=== PATIENT | female | born 1995 | race Two or more races ===

== ENCOUNTER 2025-03-19 16:20 | Emergency (ER) | payer BC, SELFPAY ==
[2025-03-19 16:28] VITALS: BP 117/75; PULSE 77; RESP 16; TEMP 36.7; O2SAT 97; BMI 30.5
--- NOTE | 2025-03-19 16:33 | XR_ITS ---
Examination: Complete OB ultrasound, less than 14 weeks, transabdominal Date and time of exam: 03/19/2025, 4:46 p.m. COMPARISON: None INDICATION: Vaginal bleeding for 3 days, worse today Technique: Obstetrical ultrasound images less than 14 weeks performed via transabdominal imaging Findings: LMP reported as 02/12/2025. hCG pending. Retroverted uterus measures 7.4 x 3.2 x 4.5 cm in size. No evidence for IUP at this time. The endometrium is measured at 2.6 mm in thickness. No uterine fibroids. Normal appearing ovaries with intact blood flow bilaterally. The right ovary is measured at 3.8 x 1.7 x 2.2 cm and the left ovary is measured at 3.1 x 1.6 x 1.9 cm. No adnexal mass or free pelvic fluid. IMPRESSION: No evidence for IUP at this time. No adnexal mass or free pelvic fluid.
[2025-03-19 17:06] LABS: Basophils # (Auto) 0.1 Thou/mm3 (0.0-0.2); Basophils % (Auto) 1 % (0-2.5); Eosinophils # (Auto) 0.2 Thou/mm3 (0.0-0.5); Eosinophils % (Auto) 2 % (0-10); Hematocrit 37.5 % (36.0-46.0); Hemoglobin 12.9 g/dL (12.0-16.0); Immature Granulocytes Auto 0.02 Thou/mm3 (0.00-0.00); Lymphocytes # (Auto) 3.5 Thou/mm3 (1.0-4.8); Lymphocytes % (Auto) 34 % (10-50); Mean Corpuscular HGB Conc 34.4 g/dl (31.0-37.0); Mean Corpuscular Hemoglobin 29.0 pg (25.0-35.0); Mean Corpuscular Volume 84 fL (80-100); Monocytes # (Auto) 0.8 Thou/mm3 (0.0-0.8); Monocytes % (Auto) 8 % (0-12); Neutrophils # (Auto) 5.7 Thou/mm3 (1.8-7.7); Neutrophils % (Auto) 55 % (37-80); Nucleated Red Blood Cell # 0.00 Thou/mm3 (0.00-0.00); Nucleated Red Blood Cell % 0 /100 WBC (0); Platelet Count 412 Thou/mm3 (140-440); RDW Standard Deviation 38.5 fL (36.4-46.3); Red Blood Count 4.45 Miln/mm3 (4.00-5.20); White Blood Count 10.4 Thou/mm3 (3.6-11.0)
[2025-03-19 17:28] LABS: Alanine Aminotransferase 31 U/L (10-49); Albumin, Serum 4.8 gm/dL (3.5-5.0); Albumin/Globulin Ratio 2.0 (1.2-2.2); Alkaline Phosphatase 69 U/L (46-116); Anion Gap 9 (7-16); Aspartate Amino Transferase 32 U/L (0-34); BUN/Creatinine Ratio 17 Ratio (12-20); Beta HCG,Quantitative 2 mIU/mL (<5.0); Bilirubin,Total 0.2 mg/dL (0.3-1.2); Blood Urea Nitrogen 10 mg/dL (9-23); Calcium 9.5 mg/dL (8.3-10.6); Calcium (Corrected) 9.5 mg/dL (8.5-10.1); Carbon Dioxide 27.2 mMol/L (20.0-31.0); Chloride 107 mMol/L (98-107); Creatinine (Component) 0.6 mg/dL (0.6-1.3); Estimated Creatinine Clearance 140.9 mL/min (>60); Globulin 2.4 gm/dL (2.3-3.5); Glucose 105 mg/dL (74-106); Osmolality,Calculated 283 (275-295); Potassium 4.4 mMol/L (3.4-5.1); Sodium 143 mMol/L (136-145); Total Protein 7.2 gm/dL (5.7-8.2); eGFR > 60 See Note
[2025-03-19 17:54] LABS: Collection Type, Urine Voided
[2025-03-19 18:06] LABS: Bilirubin,Urine Negative (Negative); Blood,Urine 3+ (Negative); Clarity,Urine Clear (Clear/Hazy); Color,Urine Yellow (Lt Yel-Yel); Glucose, Urine Negative (Negative); Ketones,Urine Negative (Negative); Leukocyte Esterase,Urine Positive (Negative); Nitrite,Urine Negative (Negative); PH,Urine 6.0 (5.0-7.0); Protein,Urine Trace (Neg - Trace); RBC,Urine 849 /hpf (0-3); Specific Gravity,Urine 1.034 (1.001-1.035); Squamous Epithelial Cell,Urine 3 /hpf (0-5); Urobilinogen,Urine Negative mg/dL (0.0-1.0); WBC,Urine 4 /hpf (0-5)
--- NOTE | 2025-03-19 18:34 | EDNOTE_ITS ---
ED OB Contraction Preg RMI/HPI General Chief complaint: Vaginal Bleeding Stated complaint: VAGINAL BLEEDING W/ CRAMPING; PREG 4WKS? Time Seen by Provider: 03/19/25 16:25 Arrival date/time: 03/19/25 16:20 This is a case of 29-year-old female with no medical history came in in the emergency room due to vaginal bleeding with no blood clots for 2 days patient states that she is 4 weeks she did test 3 times and it was positive she went to primary care physician the beta-hCG is positive and noted to be 25 no ultrasound done she is supposed to see OB loss prevention associate persistent of the symptoms thus patient decided to start consult here in the emergency room Limitations: no limitations Related Data Allergies Allergy/AdvReac Type Severity Reaction Status Date / Time No Known Allergies Allergy Verified 03/19/25 16:23 Review of Systems Review of Systems Systems Reviewed: All systems reviewed, normal except as documented Constitutional Constitutional: Reports system reviewed and no additional complaints, except as documented and Reports as per HPI Cardiovascular Cardiovascular: Reports system reviewed and no additional complaints, except as documented and Reports as per HPI Respiratory Respiratory: Reports system reviewed and no additional complaints, except as documented and Reports as per HPI Gastrointestinal Gastrointestinal: Reports system reviewed and no additional complaints, except as documented and Reports as per HPI Neurologic Neurologic: Reports system reviewed and no additional complaints, except as documented and Reports as per HPI Past Medical History Social History SMOKING STATUS: Never smoker ED Exam General Limitations: Present no limitations General appearance: Present alert, in no apparent distress and other (Patient is awake alert oriented not in distress nontoxic looking well-hydrated well- nourished) Head Head exam: Present atraumatic, normocephalic and normal inspection Eye Eye exam: Present normal appearance, PERRL and EOMI ENT ENT exam: Present normal exam, normal oropharynx and mucous membranes moist Neck Neck exam: Present normal inspection, full ROM and trachea midline; Absent tenderness, meningismus, lymphadenopathy or thyromegaly Chest Chest inspection: Present normal inspection and symmetric chest wall rise; Absent tenderness Respiratory Respiratory exam: Present normal lung sounds bilaterally; Absent respiratory distress, wheezes, stridor, accessory muscle use or prolonged expiratory phase Cardiovascular Cardiovascular exam: Present regular rate, normal rhythm and normal heart sounds; Absent bradycardia, tachycardia, irregular rhythm, systolic murmur or diastolic murmur Abdominal Exam Abdominal exam: Present soft and normal bowel sounds; Absent distention, tenderness, guarding, rebound, rigidity, diminished bowel sounds, hyperactive bowel sounds, hypoactive bowel sounds or organomegaly Extremities Exam Extremities exam: Present normal inspection and full ROM Back Exam Back exam: Present normal inspection and full ROM Neurological Exam Neurological exam: Present alert, oriented X3, CN II-XII intact, normal gait and reflexes normal; Absent motor sensory deficit Psychiatric Psychiatric exam: Present normal affect and normal mood Skin Skin exam: Present warm, dry, intact, normal color and other (Excellent skin turgor) Course Quality Measures none Orders Category Date Time Status US OB <= 14 weeks fetus Stat Exams 03/19/25 16:33 Completed ABO/RH Type Stat Lab 03/19/25 16:47 Completed Beta HCG,Quantitative Stat Lab 03/19/25 16:47 Completed CBC Stat Lab 03/19/25 16:47 Completed CMP [Comprehensive Metabolic Panel] Stat Lab 03/19/25 16:47 Completed Urinalysis Stat Lab 03/19/25 17:20 Completed Vital Signs Vital signs: Vital Signs Temperature 98.1 F 03/19/25 16:28 Pulse Rate 77 03/19/25 16:28 Respiratory Rate 16 03/19/25 16:28 Blood Pressure 117/75 03/19/25 16:28 Pulse Oximetry (%) 97 03/19/25 16:28 Oxygen Delivery Method Room Air 03/19/25 16:28 Oxygen saturation is 97% on room air Vaginal Bleeding MDM Narrative MDM Narrative: This is a case of 29-year-old female with no medical history came in in the emergency room due to vaginal bleeding with no blood clots for 2 days patient states that she is 4 weeks she did test 3 times and it was positive she went to primary care physician the beta-hCG is positive and noted to be 25 no ultrasound done she is supposed to see OB loss prevention associate persistent of the symptoms thus patient decided to start consult here in the emergency room physical examination patient is awake alert oriented not in distress nontoxic looking well-hydrated well-nourished abdominal exam is benign nonsurgical no guarding no rebound no rigidity no tenderness negative psoas negative straight or negative Rovsing's negative McBurney's negative Cooper sign negative CVA tenderness patient is not pale excellent skin turgor blood test showed no leukocytosis no anemia kidney and liver function is normal no electrolyte imbalance patient beta-hCG is negative and noted to be 2 from 25 that was done last week patient ultrasound noted no intrauterine at this point at this point I cannot totally ruled out that the patient had miscarriage or only abnormal vaginal bleeding she was advised to follow-up with PCP in 2 days for reevaluation and to see OB loss prevention associate for further evaluation and treatment of abnormal vaginal bleeding she was also advised to return in the emergency room to repeat beta-hCG and pelvic ultrasound continue hydration and for any worsening symptoms or any emergent concern return precaution in the emergency room was advised Patient was discharged with comfortable condition walking with stable gait. Patient verbalized no further complains explained diagnosis and answered patient question. Patient is comfortable with the proposed management plan including the need to follow up with his/her primary care physician and any specialist if applicable Discussed patient for any urgent condition or worsening sx, He/She needed to go to emergency room immediately or call 911. Patient acknowledge the responsibility to follow up as instructed and to monitor her/his symptoms. For any persistence of the symptoms for more than 3-5 days return precaution advised. Discussed the result of the test and was given printed discharge instruction Patient data External records reviewed:: [facility] [place] previous records Clinical information provided by:: patient Social determinants that could affect healthcare access:: none Patient has the following chronic illnesses:: None How is presenting disease/condition affected by chronic disease/condition?: no chronic disease Evaluation data The following diagnostics were reviewed and interpreted by me:: lab results and radiology exam(s) Lab and/or radiology exams considered but not ordered:: Reviewed Interpretation Summary: Reviewed Medications / Prescriptions Medications or Prescriptions considered but not ordered:: Given Medication administrations:: Given Consultations Consultation(s) initiated? (list below): No Diagnosis Vaginal Bleeding Differential Diagnosis: missed , threatened , dysfunctional uterine bleeding, menometrorrhagia, incomplete and vaginal bleeding Most likely diagnosis given after review of the tests above:: Abnormal vaginal bleed Admission Indicated Admission indicated?: not indicated Explain why admission is indicated or not indicated:: Not indicated Admission Request Was there a request for admission?: No Admission Attestation Admission request attestation: Not indicated Disposition Plan Disposition Plan: Discharge Discharge Attestation Discharge Attestation: The patient and all family members were given an opportunity to ask questions and understood the discharge instructions. Discharge instructions specifically effects, indications for sooner follow up or return to the emergency department, and the expected course of current diagnosis. Patient condition: Stable Discharge Plan Plan Patient Disposition: HOME (Self Care) Patient condition on transfer: Stable Prescriptions/Referrals Referrals: No Primary/Family,Physician [Primary Care Provider] - In 1 week Problem List Clinical Impression: Abnormal vaginal bleeding Patient/Caregiver Discharge Instructions Education Materials: ED Dysfunctional Uterine Bleeding Additional Instructions: It is very important to return in the emergency room next week for repeat beta- hCG and pelvic ultrasound I cannot totally rule out a miscarriage at this point because there is no comparison your ultrasound is negative for test and your beta-hCG is also negative for any worsening symptoms or any emergent concern call 911 or go to the nearest emergency room follow-up with your primary care physician in 2 days for reevaluation and possible repeat test you also need to see an OB loss prevention associate for abnormal vaginal bleeding keep hydrated Print Language: Sammarinese Stand Alone Forms: Eve Award Info., Patient Portal Info Letter PA/CHAITANYA Supervising Physician MARTINE/CHAITANYA Supervising Physician: DR ortega
== END 2025-03-19 18:44 | disposition home or self-care (01) ==
PROVIDERS: Nurse Practitioner Family; Emergency Provider Emergency Medicine
DX: N93.9 Abnormal uterine and vaginal bleeding, unspecified (principal)
CPT/HCPCS: 36415; 76801; 80053; 81001; 84702; 85025; 86900; 86901; 99283